=== PATIENT | female | born 1950 | race Caucasian/White ===

== ENCOUNTER → 2017-10-01 | Outpatient (CLI) | payer MEDICARE ==
[~2017-10-01] MED LIST: CYCL5TAB PO; DICL50 PO; VENL75TA91 PO
--- NOTE | 2017-10-07 14:37 | HM ---
Date Performed: 10/01/2017 Time Performed: 11:02:00 HOOKUP DATE: 10/01/17 11:02:00 AM Char ANALYSIS START TIME: 10/01/2017 11:07:00 AM ANALYSIS END TIME: 10/02/2017 10:48:53 AM PATIENT AGE: 67 PATIENT HEIGHT PATIENT WEIGHT DRUG LIST PATIENT DIAGNOSIS: PALPITATIONS TEST NARRATIVE: The patient's average heart rate was 81 BPM. Heart rates greater than 120 B PM were noted 5% of the time. No episodes of bradycardia were noted. No pauses exceeding 2.0 sec onds were noted. 333 ventricular ectopics, which represented < 1% of the total beat count, were n oted. The highest ventricular ectopic frequency occurred from 01:00 PM to 02:00 PM Char. During this time 89 VE(s) occurred. Ventricular ectopics were observed as 333 isolated beat(s) only. No couple ts or runs were noted. 36 supraventricular ectopics, which represented < 1% of the total beat cou nt, were noted. The highest supraventricular ectopic frequency occurred from 08:00 PM to 09:00 PM Th u. During this time 6 SVE(s) occurred. No episodes of ST depression (defined as -1.0 mm or more) were noted in channel 1. No episodes of ST depression (defined as -1.0 mm or more) were noted in ch ivetet 2. No episodes of ST depression (defined as -1.0 mm or more) were noted in channel 3. TEST INTERPRETATION: Sinus rhythm and occasional sinus tachycardia Occasional premature ventricular complexes Rare premature atrial co mplexes Signed by : Otto Osorio
== END ==
LOC: HCAV 10:19
PROVIDERS: ATTEND Family Medicine
DX: R00.2 Palpitations (principal)
CPT/HCPCS: 93225; 93226